=== PATIENT | female | born 1935 | race Caucasian/White ===

== ENCOUNTER 2021-01-14 08:39 | Observation (INO) | payer MEDICARE ==
[~2021-01-14] VITALS: Ht 163.8 cm; Wt 70.4 kg
[2021-01-14] VITALS (8 sets, daily range): BP systolic 93–201; BP diastolic 46–86
[2021-01-14] MEDS ORDERED: ceFAZolin SODIUM IV Push 1 GM VIAL. IVP ONE ×3 (08:45→16:00)
[2021-01-14] MEDS ORDERED: VITA0.4T17 PO (08:59)
[2021-01-14] MEDS ORDERED: ESTR50GE TP (08:59)
[2021-01-14] MEDS ORDERED: HYDR-2867 PO (08:59)
[2021-01-14] MEDS ORDERED: ASCO100019 PO (08:59)
[2021-01-14] MEDS ORDERED: CALC-473 PO (08:59)
[2021-01-14] MEDS ORDERED: vitamin d3 PO (08:59)
[2021-01-14] MEDS ORDERED: LORA10TA3 PO (08:59)
[2021-01-14] MEDS ORDERED: OMEG1CAP38 PO (08:59)
[2021-01-14] MEDS ORDERED: WHEA1POW8 PO (08:59)
[2021-01-14] MEDS ORDERED: MELO7.5T29 PO (08:59)
[2021-01-14] MEDS ORDERED: SIMV20TA18 PO (08:59)
[2021-01-14] MEDS ORDERED: LOSA100T14 PO (08:59)
[2021-01-14] MEDS ORDERED: CARV6.2511 PO (08:59)
[2021-01-14] MEDS ORDERED: MAGN125C PO (08:59)
[2021-01-14] MEDS ORDERED: [UNRECOGNIZED DRUG - OTHER] PO (08:59)
[2021-01-14] MEDS ORDERED: AMLO-187 PO (08:59)
[2021-01-14] MEDS ORDERED: ceFAZolin SODIUM 1 GM in IV NORMAL SALINE 100ML 100 ML IRR ONE (09:00)
--- NOTE | 2021-01-14 09:00 | EKG ---
[facility] [address] [place] [address] Test Date: 2021-01-14 Test Time: 08:56:53 Pat Name: SAHIL WOODRUFF Department: Room: Gender: F Stockbroking Dealer: : [id number] Requested By: ABHILASH BALLESTEROS Order Number: [id number] Reading MD: Abhilash Ballesteros Measurements Intervals [place] Rate: 49 P: 45 DE: 190 QRS: -16 QRSD: 84 T: 16 QT: 452 QTc: 411 Interpretive Statements SINUS BRADYCARDIA LEFTWARD AXIS INCOMPLETE RIGHT BUNDLE BRANCH BLOCK Electronically Signed On 01-16-2021 12:51:50 ENERGY SALES CONSULTANT by Abhilash Ballesteros
[2021-01-14 09:23] LABS: HEMATOCRIT 38.2 % (36.0-47.0); RED BLOOD COUNT 4.01 x10^6/uL (3.50-5.40); RED CELL DISTRIBUTION WIDTH 12.8 % (11.5-14.5)
[2021-01-14 09:30] LABS: CALCIUM 8.9 mg/dL (8.5-10.1); CREATININE 0.6 mg/dL (0.6-1.0); GFR 95.2; POTASSIUM 4.4 mmol/L (3.5-5.1)
[2021-01-14 09:38] LABS: PROTHROMBIN TIME PATIENT 12.7 SEC (11.7-14.0)
[2021-01-14] MEDS ORDERED: fentaNYL PF VIAL 100 MCG/2 ML VIAL ONE (09:44)
[2021-01-14] MEDS ORDERED: MIDAZOLAM HCL/PF 5 MG/5 ML VIAL. ONE (09:44)
[2021-01-14] MEDS ORDERED: LIDOCAINE 2%/EPI 1:100,000 20 ML VIAL. ONE (10:11)
[2021-01-14] MEDS ORDERED: MIDAZOLAM HCL/PF 5 MG/5 ML VIAL. IV ONE (10:15)
[2021-01-14] MEDS ORDERED: LIDOCAINE 2%/EPI 1:100,000 20 ML VIAL. IJ ONE (10:15)
[2021-01-14] MEDS ORDERED: fentaNYL PF VIAL 100 MCG/2 ML VIAL IV ONE (10:15)
[2021-01-14] MEDS ORDERED: hydrALAZINE 20 MG/ML VIAL. ONE (10:44)
[2021-01-14] MEDS ORDERED: hydrALAZINE 20 MG/ML VIAL. IVP ONE (11:00)
--- NOTE | 2021-01-14 11:07 | PDOC ---
MODERATE SEDATION ASSESSMENT RISKS/ALTERNATIVES Risks/Alternatives Risks and alternatives of this type of sedation and procedure discussed with: RISK/ALTERNATIVES: Patient H & P ON CHART H & P H & P on chart and reviewed for co-morbid conditions and appropriate labs. H&P ON CHART: Yes STATUS PREG STATUS ASSESSED: N/A MEDS/ALLERGIES REVIEWED Meds/Allergies Reviewed Medications and Allergies including time and route of recently administered narcotics and sedatives. MEDS/ALLERGIES REVIEWED: Yes ASA RATING ASA RATING: III AIRWAY ASSESSMENT Airway Assessment Airway patency, oral function limitations, presence of caps, crowns, dentures, partials, and ability to extend neck assessed. AIRWAY ASSESSMENT: Yes MALLAMPATI SCORE MALLAMPATI SCORE: II PRE-SEDATION ASSESSMENT PRE-SEDATION ASSESSMENT: Yes ARABELLA GREENE MD Jan 14, 2021 11:07
--- NOTE | 2021-01-14 11:27 | CARD ---
MR#: [id number] Date of Study: 01/14/2021 Ordering Physician: ABHILASH BALLESTEROS, Referring Physician: ABHILASH BALLESTEROS, Tech: APPROVED REPORT PROCEDURES Implantation of Medtronic dual-chamber permanent pacemaker [place] TIME: 3.0 MIN DOSE: 1.9 GYCM2 MODERATE SEDATION: 57 MINS INDICATIONS Sick sinus syndrome with severe symptomatic bradycardia PROCEDURE After explaining the risks, benefits, and alternative options, informed consent was obtained from the patient. The patient was brought to the cardiac catheterization lab and the left chest and shoulder were prepp ed and draped in a sterile manner. IV conscious sedation was used throughout procedure with appropriate monitoring and was performed in the presence of a registered nurse who was an independent trained observer other than the physician p erforming the procedure. During this case, Fluoroscopy and low osmolar contrast were used for imaging. Specimen(s) Removed: No Estimated Blood loss: 15 cc's. 30 cc of 2% lidocaine was infiltrated in the skin and subcutaneous tissues for local anesthesia. An i ncision was made over the left infraclavicular fossa and using blunt dissection and cautery, a pocket was created. Venous access was obtained under fluoroscopy guidance and 9 and 7 Armenian sheaths insert ed. A Medtronic bipolar active fixation right ventricular lead model 102873, serial number [id number] wa s advanced under fluoroscopic guidance and the tip was positioned in the right ventricular apex. Subs equently, a Medtronic bipolar active fixation right atrial lead model 492738, serial number [id number] was positioned in the right atrial appendage under fluoroscopic guidance. The leads were secured i o place and were attached to a Medtronic dual-chamber permanent pacemaker generator model W3 DR 01, serial number [id number]. This was placed in the pocket that was subsequently closed in 3 layers. H emostasis was secured. The right ventricular lead showed a sensing amplitude of 8.2 mV, impedance of 572 ohms and a threshol d of 0.6 V. Right atrial lead showed a sensing amplitude of 2.6 mV, impedance of 441 ohms and a thres hold of 0.4 V. Patient tolerated the procedure well. There were no immediate complications. CONCLUSION Successful implantation of Medtronic dual-chamber permanent pacemaker for sick sinus syndrome with se jassi symptomatic bradycardia. Signed by : Abhilash Ballesteros, Electronically Approved : 01/14/2021 11:27:41
--- NOTE | 2021-01-14 12:05 | NUR ---
Report given to Anna DUNN. Patient had pacemaker placed this a.m., dressing to left chest is clean,dry,intact with pressure dressing. Left arm is in an immobilizer. No complaints of pain. Patient stated her son was leaving after talking to the doctor about how her procedure went. Patient taken to room 648 by cedrick and assisted to her bed without complications, Smooth DUNN assisted patient with telemetry box etc. No problems noted.
--- NOTE | 2021-01-14 12:20 | RAD ---
XR CHEST 1V History: Reason: POST PACEMAKER / Spl. Instructions: / History: Comparison: December 05, 2020 Findings: Left-sided pacemaker with RA and RV leads. No pneumothorax. No pleural effusion. Normal heart size. M ild left midlung linear atelectasis or scarring. Postop changes cervical spine. Glenohumeral DJD. Impression: 1. Interval placement left-sided pacemaker. No pneumothorax. Electronically signed by: Demar Trevino DO (01/14/2021 12:18 PM) [id number]
[2021-01-14] MEDS: CARVEDILOL 6.25 MG TABLET. PO SCH ×2 (17:00→17:02)
[2021-01-14] MEDS ORDERED: NITROGLYCERIN OINT 1 GM PACKET. TP PRN (23:15)
[2021-01-14] MEDS ORDERED: ACETAMINOPHEN 325 MG TABLET. PO PRN (23:15)
[2021-01-14] MEDS ORDERED: LOSARTAN POTASSIUM 50 MG TABLET. PO ONE ×2 (23:30→23:45)
--- NOTE | 2021-01-14 23:45 | NUR ---
Patients blood pressure 189/92 pulse 62. Patient stated she did not take her 200 mg losartan today due to procedure. call center professional for Dr. Lesli urbina. Per Dr. Delarosa give losartan 200mg po now. nitro 1.5 inch every six hours PRN if systolic blood pressure not lowered to 130s. Acetaminophen 650m mg po every 2 hours as needed for pain. Rechecked blood pressure at 0045 and blood pressure 132/57 pulse 59. Patient asleep, easy to wake.
[2021-01-15 00:51] VITALS: BP 132/57
[2021-01-15 02:50] VITALS: BP 123/59
[2021-01-15 07:30] VITALS: BP 151/69
[2021-01-15] MEDS: CARVEDILOL 6.25 MG TABLET. PO SCH (08:21)
[2021-01-15] MEDS ORDERED: LOSARTAN POTASSIUM 50 MG TABLET. PO SCH (09:00)
[2021-01-15 11:03] VITALS: BP 122/64
--- NOTE | 2021-01-15 11:49 | RAD ---
XR CHEST 2V INDICATION: 1 DAY POST PACEMAKER / Spl. Instructions: / History: . COMPARISON STUDY: 01/15/2020. FINDINGS: Life Support Devices: Left pectoral pacemaker. Lungs: Hyperexpanded lung volume. No confluent consolidation. Stable left basilar linear subsegmental atelectasis. Normal pulmonary vasculature. Pleura: Pleural thickening versus trace effusions. Heart and Mediastinum: Stable cardiomediastinal silhouette and great vessels. IMPRESSION: No consolidation. No pneumothorax. Electronically signed by: José Luis Harrison MD (01/15/2021 11:46 AM) [id number]
--- NOTE | 2021-01-15 11:54 | NUR ---
SS following for discharge planning. SS reviewed pt chart and discussed with pt RN. Pt is from home and is currently on room air. Pt had pacemaker placement on 01/14/2021. PT/OT ordered. Cardiology requesting home with home healthcare. Pt agreeable to home healthcare with no preference of company. Referral sent to [facility], ; fax [phone], and pt accepted on services. Cardiology notified. SS will continue to follow for discharge planning. Addendum: 01/15/21 at 1344 by THONG SPEARS SS Discharge [facility] received for [facility] with [facility] healthcare [facility] Pt's RN notified.
--- NOTE | 2021-01-15 12:50 | SNU/HH DC ---
DISCHARGE WITH HOME HEALTH DISCHARGE INFORMATION: Discharge Date: Jan 15, 2021 Final Diagnosis: SSS, HTN, S/P PPM Condition on Discharge: Stable CODE STATUS: Code Status: Full HOME HEALTH: Face to Face: I certify this patient is under my care and that I, or a nurse practitioner or physician's assistant department manager working with me, had a face to face encounter that meets the physician face to face encounter requirements with this patient on []. RN For Eval/Treatment: Yes Physical Therapy For: Evalulation/Treatment Occupational Therapy For: Evaluation/Treatment Home Health Aide For: Self-care Pt Meets Homebound Status: Poor coordination w/ amb. POST DISCHARGE ORDERS: Activity Instructions for Disc: Activity as tolerated, Other, see below (see post pacemaker instructions for mobility restrictions) Weight Bearing Status after Di: No restrictions, Other, see below (Wear sling as instructed) Bathing Instructions: No Tub Bath until see DIET AFTER DISCHARGE: Cardiac Wound/Incision Care: Other, see below Other wound/incision instructi: Keep incision open to air and watch for signs and symptoms of infection FOLLOW-UP: Additional Instructions: See post pacemaker instructions handout CERTIFICATION STATEMENT: Certification Statement: Certification Statement: Based on the above finding, I certify that this patient is confined to the home and needs intermittent halfway care, physical therapy and/or speech therapy, or continues to need occupational therapy.~ This patient is under my care, and I have initiated the establishment of the plan of care.~ This patient will be followed by myself or a community physician who will periodically review the plan of care. Home Meds Reported Medications Wheat Dextrin (Benefiber) 1 Each Powd.pack, 1 EACH PO BID for , PKT 01/14/21 [place]-3 Fatty Acids/Fish Oil (OMEGA 3 FISH OIL SOFTGEL) 1 Each Capsule., 1 EACH PO DAILY for , CAP 01/14/21 [tammie-lulu] No Conflict Check, 1 CAP PO DAILY for 01/14/21 Estradiol (ESTROGEL) 50 Gm Gel..rental salesperson, 1 MARIA ANTONIA TP WEEKLY for for 30 Days, #50 GM 0 Refills 01/14/21 Loratadine (LORATADINE) 10 Mg Tablet, 10 MG PO DAILY for , TAB 01/14/21 Vitamin B Complex/Folic Acid (Super B Maxi Complex Caplet) 0.4 Mg Tablet, 0.4 MG PO DAILY for , TAB 01/14/21 Ascorbic Acid (VITAMIN C) 1,000 Mg Tablet, 1000 MG PO DAILY for , TAB 01/14/21 [vitamin d3] No Conflict Check, 2000 UNITS PO DAILY for 01/14/21 Magnesium Citrate (Magnesium Citrate) 125 Mg Capsule, 250 MG PO DAILY for , CAP 01/14/21 Calcium Cit/Mag/D3/Zn/Gas Compressor Turbine Operator/Carlos (Calcium Citrate Plus Tablet) 1 Each Tablet, 1 EACH PO DAILY for , TAB 01/14/21 Meloxicam (MELOXICAM) 7.5 Mg Tablet, 7.5 MG PO DAILY for , TAB 01/14/21 Simvastatin (SIMVASTATIN) 20 Mg Tablet, 20 MG PO HS for FOR CHOLESTEROL, #30 TAB 0 Refills 01/14/21 Amlodipine Besylate (AMLODIPINE BESYLATE) 10 Mg Tablet, 10 MG PO HS for , TAB 01/14/21 Hydralazine Hcl (HYDRALAZINE HCL) 10 Mg Tablet, 1 TAB PO TID for , #270 TAB 3 Refills 01/14/21 Carvedilol (CARVEDILOL ) 6.25 Mg Tablet, 6.25 MG PO BIDWMEALS for CARDIAC, TAB 01/14/21 Losartan Potassium (LOSARTAN POTASSIUM) 100 Mg Tablet, 100 MG PO DAILY for HYPERTENSION, TAB 01/14/21 SAMUEL GARCIA APRN Jan 15, 2021 12:50
--- NOTE | 2021-01-15 12:55 | PDOC3 ---
SAMUEL GARCIA REGIONAL OPERATIONS DIRECTOR 01/15/21 1254: Discharge Summary Visit Information Date of Admission: Jan 14, 2021 Date of Discharge: Jan 15, 2021 Admitting Diagnosis: SSS, HTN Admitting Diagnosis Comment: SSS, HTN, S/P PPM Brief Hospital Course Allergies Allergies Coded Allergies Type Severity Reaction Last Updated Verified codeine Allergy Severe 01/14/21 Yes tramadol Allergy Intermediate 01/14/21 Yes Vital Signs Vital Signs Date Time Temp Pulse Resp B/P (MAP) Pulse Ox O2 Delivery O2 Flow Rate FiO2 01/15/21 11:03 97.8 60 20 122/64 (83) 98 Room Air 97.8 01/14/21 11:08 2.0 Lab Results Laboratory Tests Test 01/14/21 09:12 White Blood Count 5.0 x10^3/uL (4.0-11.0) Red Blood Count 4.01 x10^6/uL (3.50-5.40) Hemoglobin 13.0 g/dL (12.0-15.5) Hematocrit 38.2 % (36.0-47.0) Mean Corpuscular Volume 95 fL (79-100) Mean Corpuscular Hemoglobin 32 pg (25-35) Mean Corpuscular Hemoglobin Concent 34 g/dL (31-37) Red Cell Distribution Width 12.8 % (11.5-14.5) Platelet Count 184 x10^3/uL (140-400) Prothrombin Time 12.7 SEC (11.7-14.0) Prothromb Time International Ratio 1.0 (0.8-1.1) Sodium Level 138 mmol/L (136-145) Potassium Level 4.4 mmol/L (3.5-5.1) Chloride Level 102 mmol/L (98-107) Carbon Dioxide Level 27 mmol/L (21-32) Anion Gap 9 (6-14) Blood Urea Nitrogen 13 mg/dL (7-20) Creatinine 0.6 mg/dL (0.6-1.0) Estimated GFR (Cockcroft-Gault) 95.2 Glucose Level 88 mg/dL (70-99) Calcium Level 8.9 mg/dL (8.5-10.1) Brief Hospital Course Ms. Alvarez is a 85 old female admitted for planned PPM placement. She had a successful implantation of Medtronic dual-chamber permanent pacemaker for sick sinus syndrome with severe symptomatic bradycardia. Post operatively she did well without any immediate complications. She denies any discomfort and no SOA or chest pain. She tolerated the procedure well. She is AOx3, LSCTA, and neurovascular status to LUE intact and left chest incision is D/I with steristrips without any erythema or swelling. Sling is in place and post PPM care instructions given. She is to continue her home meds and will be seen in our office in 2 weeks. VSS with intermittent pacing. She will be receiving home health therapy. Discharge Information Condition at Discharge: Stable Follow Up: Weeks (2) Disposition/Orders: D/C to Home w/ HH Scheduled Amlodipine Besylate (Amlodipine Besylate) 10 Mg Tablet, 10 MG PO HS for , (Reported) Entered as Reported by: JANE DONOVAN on 01/14/21858 Last Action: Continued on 01/14/211101 by VICKY MONAE Ascorbic Acid (Vitamin C) 1,000 Mg Tablet, 1,000 MG PO DAILY for , (Reported) Entered as Reported by: JANE DONOVAN on 01/14/21858 Last Action: New Order on 01/14/21858 by JANE DONOVAN Calcium Cit/Mag/D3/Zn/Hearing Aid Dispenser/Carlos (Calcium Citrate Plus Tablet) 1 Each Tablet, 1 EACH PO DAILY for , (Reported) Entered as Reported by: JANE DONOVAN on 01/14/21858 Last Action: New Order on 01/14/21858 by JANE DONOVAN Carvedilol (Carvedilol ) 6.25 Mg Tablet, 6.25 MG PO BIDWMEALS for CARDIAC, (Reported) Entered as Reported by: JANE DONOVAN on 01/14/21858 Last Action: Continued on 01/14/211101 by VICKY MONAE Estradiol (Estrogel) 50 Gm Gel..flame annealing machine setter, 1 MARIA ANTONIA TP WEEKLY for for 30 Days, #50 Ref 0 (Reported) Entered as Reported by: JANE DONOVAN on 01/14/21858 Last Action: New Order on 01/14/21858 by JANE DONOVAN Hydralazine Hcl (Hydralazine Hcl) 10 Mg Tablet, 1 TAB PO TID for , #270 Ref 3 (Reported) Entered as Reported by: JANE DONOVAN on 01/14/21858 Last Taken: Unknown Dose on 01/14/21 Last Action: New Order on 01/14/21858 by JANE DONOVAN Loratadine (Loratadine) 10 Mg Tablet, 10 MG PO DAILY for , (Reported) Entered as Reported by: JANE DONOVAN on 01/14/21858 Last Action: New Order on 01/14/21858 by JANE DONOVAN Losartan Potassium (Losartan Potassium) 100 Mg Tablet, 100 MG PO DAILY for HYPERTENSION, (Reported) Entered as Reported by: JANE DONOVAN on 01/14/21858 Last Action: Converted on 01/14/211101 by VICKY MONAE Magnesium Citrate (Magnesium Citrate) 125 Mg Capsule, 250 MG PO DAILY for , (Reported) Entered as Reported by: JANE DONOVAN on 01/14/21858 Last Action: New Order on 01/14/21858 by JANE DONOVAN Meloxicam (Meloxicam) 7.5 Mg Tablet, 7.5 MG PO DAILY for , (Reported) Entered as Reported by: JANE DONOVAN on 01/14/21858 Last Action: New Order on 01/14/21858 by JANE DONOVAN [place]-3 Fatty Acids/Fish Oil ([place] 3 Fish Oil Softgel) 1 Each Capsule.dr, 1 EACH PO DAILY for , (Reported) Entered as Reported by: JANE DONOVAN on 01/14/21858 Last Action: New Order on 01/14/21858 by JANE DONOVAN Simvastatin (Simvastatin) 20 Mg Tablet, 20 MG PO HS for FOR CHOLESTEROL, #30 Ref 0 (Reported) Entered as Reported by: JANE DONOVAN on 01/14/21858 Last Action: New Order on 01/14/21858 by JANE DONOVAN Vitamin B Complex/Folic Acid (Super B Maxi Complex Caplet) 0.4 Mg Tablet, 0.4 MG PO DAILY for , (Reported) Entered as Reported by: JANE DONOVAN on 01/14/21858 Last Taken: Unknown Dose on 01/14/21 Last Action: New Order on 01/14/21858 by JANE DONOVAN Wheat Dextrin (Benefiber) 1 Each Powd.pack, 1 EACH PO BID for , (Reported) Entered as Reported by: JANE DONOVAN on 01/14/21858 Last Action: New Order on 01/14/21858 by JANE DONOVAN [tammie-lulu] , 1 CAP PO DAILY for , (Reported) Entered as Reported by: JANE DONOVAN on 01/14/21858 Last Action: New Order on 01/14/21858 by JANE DONOVAN [vitamin d3] , 2,000 UNITS PO DAILY for , (Reported) Entered as Reported by: JANE DONOVAN on 01/14/21858 Last Action: New Order on 01/14/21858 by JANE DONOVAN Patient Instructions Patient Instructions Must know & what to expect after device implant: 1. Your surgical dressing should be removed prior to discharge from the [facility], but allow the steri- strips to fall off naturally. 2. Activity restrictions: DO NOT raise arm above shoulder level, lift anything heavier than a gallon of milk, and no push or pull motions such as vacuuming/lawn mowing, no swinging motions (golf), etc for 4 weeks. 3. It is OK to use a cell phone or other electronic devices just be sure you do not store it in a breast pocket on the side where the device was placed. 4. Device will be interrogated prior to your discharge from the hospital and then every 3 months for defibrillators and every 6 months for pacemakers. You may be asked to have your device checked remotely from home as well, but this will depend on your particular physicians preference. 5. You may remove the arm immobilizer the day after device placement. Wear the arm immobilizer/splint at night (during sleep times) for 2 week to prevent unintended arm movement that can cause lead dislodgement. 6. Do not drive for one week as the task of driving may lead to unintended arm motion that may cause lead dislodgement. The seatbelt will also rub against the incision site & cause irritation. 7. It is our recommendation that you utilize Tylenol at home for pain control. You need to call our office if you are having uncontrollable pain at the incision site. 8. Keep your incision clean and dry. It is OK to shower. DO NOT submerge in bath, pool, or hot tub, until cleared by your doctor, as this could lead to increase risk of infection.. It is OK to use regular soap just do not scrub the incision site. Water spray from shower should not directly hit the incision. Be sure to blot dry not rub. 9. Inspect your incision daily. If you notice any increased redness, swelling, or drainage, or if you start running a fever, call the office immediately. The number is [phone]. 10. For women, if you need to protect against irritation from the bra straps, you can place a piece of gauze over the incision site for cushion. Please be sure to tape it loosely to allow air to the site & remove the gauze when you remove the bra. 11. Be sure to carry your device identification information card in your wallet/purse at all times. 12. It is OK to go through security at the airport with your device, but be sure to let the TSA know prior to proceeding as the security settings change depending on varying factors. Please do whatever is requested by security at that time. 13. Some of the newer devices may be MRI compatible but, currently, the use of these devices is not widespread, so you likely will not be able to have an MRI. Please clarify this with your physician. If at any time, you feel lightheaded or dizzy/faint, stop what you are doing & lie down immediately. If you are driving, get to the side of the road quickly, turn your car off & call 911 on your cell phone. DO NOT continue to drive as this may cause an accident that seriously injures yourself &/or others. Call the office at [phone] for any questions or concerns. Justicifation of Admission Dx: Justifications for Admission: Justification of Admission Dx: Yes ARABELLA GREENE MD 01/15/21 1750: Discharge Summary Brief Hospital Course Brief Hospital Course Patient seen and examined. Agree with WILDLIFE CONSERVATION PROFESSOR's assessment and plan. Patient underwent successful dual-chamber permanent pacemaker implantation yesterday for sick sinus syndrome with severe symptomatic bradycardia. Her incision looked good and chest x-ray did not show any pneumothorax. Device interrogation showed normal function. Follow-up with our office as scheduled. Discharge Information Scheduled Amlodipine Besylate (Amlodipine Besylate) 10 Mg Tablet, 10 MG PO HS for , (Reported) Entered as Reported by: JANE DONOVAN on 01/14/21858 Last Action: Continued on 01/14/211101 by VICKY MONAE Ascorbic Acid (Vitamin C) 1,000 Mg Tablet, 1,000 MG PO DAILY for , (Reported) Entered as Reported by: JANE DONOVAN on 01/14/21858 Last Action: New Order on 01/14/21858 by JANE DONOVAN Calcium Cit/Mag/D3/Zn/Hearing Aid Dispenser/Carlos (Calcium Citrate Plus Tablet) 1 Each Tablet, 1 EACH PO DAILY for , (Reported) Entered as Reported by: JANE DONOVAN on 01/14/21858 Last Action: New Order on 01/14/21858 by JANE DONOVAN Carvedilol (Carvedilol ) 6.25 Mg Tablet, 6.25 MG PO BIDWMEALS for CARDIAC, (Reported) Entered as Reported by: JANE DONOVAN on 01/14/21858 Last Action: Continued on 01/14/211101 by VICKY MONAE Estradiol (Estrogel) 50 Gm Gel.flame annealing machine setter, 1 MARIA ANTONIA TP WEEKLY for for 30 Days, #50 Ref 0 (Reported) Entered as Reported by: JANE DONOVAN on 01/14/21858 Last Action: New Order on 01/14/21858 by JANE DONOVAN Hydralazine Hcl (Hydralazine Hcl) 10 Mg Tablet, 1 TAB PO TID for , #270 Ref 3 (Reported) Entered as Reported by: JANE DONOVAN on 01/14/21858 Last Taken: Unknown Dose on 01/14/21 Last Action: New Order on 01/14/21858 by JANE DONOVAN Loratadine (Loratadine) 10 Mg Tablet, 10 MG PO DAILY for , (Reported) Entered as Reported by: JANE DONOVAN on 01/14/21858 Last Action: New Order on 01/14/21858 by JANE DONOVAN Losartan Potassium (Losartan Potassium) 100 Mg Tablet, 100 MG PO DAILY for HYPERTENSION, (Reported) Entered as Reported by: JANE DONOVAN on 01/14/21858 Last Action: Converted on 01/14/211101 by VICKY MONAE Magnesium Citrate (Magnesium Citrate) 125 Mg Capsule, 250 MG PO DAILY for , (Reported) Entered as Reported by: JANE DONOVAN on 01/14/21858 Last Action: New Order on 01/14/21858 by JANE ODNOVAN Meloxicam (Meloxicam) 7.5 Mg Tablet, 7.5 MG PO DAILY for , (Reported) Entered as Reported by: JANE DONOVAN on 01/14/21858 Last Action: New Order on 01/14/21858 by JANE DONOVAN Afton-3 Fatty Acids/Fish Oil ([place] 3 Fish Oil Softgel) 1 Each Capsule.dr, 1 EACH PO DAILY for , (Reported) Entered as Reported by: JANE DONOVAN on 01/14/21858 Last Action: New Order on 01/14/21858 by JANE DONOVAN Simvastatin (Simvastatin) 20 Mg Tablet, 20 MG PO HS for FOR CHOLESTEROL, #30 Ref 0 (Reported) Entered as Reported by: JANE DONOVAN on 01/14/21858 Last Action: New Order on 01/14/21858 by JANE DONOVAN Vitamin B Complex/Folic Acid (Super B Maxi Complex Caplet) 0.4 Mg Tablet, 0.4 MG PO DAILY for , (Reported) Entered as Reported by: JANE DONOVAN on 01/14/21858 Last Taken: Unknown Dose on 01/14/21 Last Action: New Order on 01/14/21858 by JANE DONOVAN Wheat Dextrin (Benefiber) 1 Each Powd.pack, 1 EACH PO BID for , (Reported) Entered as Reported by: JANE DONOVAN on 01/14/21858 Last Action: New Order on 01/14/21858 by JANE DONOVAN [tammie-lulu] , 1 CAP PO DAILY for , (Reported) Entered as Reported by: JANE DONOVAN on 01/14/21858 Last Action: New Order on 01/14/21858 by JANE DONOVAN [vitamin d3] , 2,000 UNITS PO DAILY for , (Reported) Entered as Reported by: JANE DONOVAN on 01/14/21858 Last Action: New Order on 01/14/21858 by SAMUEL ROE APRN Jan 15, 2021 12:54 ARABELLA GREENE MD Jan 15, 2021 17:50
--- NOTE | 2021-01-15 15:00 | NUR ---
PIV'S DISCONTINUED, ET TELE REMOVED. PT ASSISTED TO DRESS WITH (L) ARM IMMOBILIZER. DISCHARGE INSTRUCTIONS, MEDICATIONS, AND PACEMAKER SPECIFIC INFORMATION REVIEWED WITH PATIENT TO HER SATISFACTION. PT TO DC IN WHEELCHAIR SOON SON ARRIVES.
== END 2021-01-15 15:05 | disposition home health service (06) ==
LOC: CCL 08:39 → 6 SOUTH 09:33 → INTOOBSV 09:33
PROVIDERS: ADMIT Internal Medicine Cardiovascular Disease; ATTEND Internal Medicine Cardiovascular Disease
DX: I49.5 Sick sinus syndrome (principal); I10 Essential (primary) hypertension; Z45.018 Encounter for adjustment and management of other part of cardiac pacemaker; Z79.899 Other long term (current) drug therapy
CPT/HCPCS: 33208; 36415; 71045; 71046; 80048; 85027; 85610; 93005; 96374; 99152; 99153; C1785; G0378; G0379; J0360; J0690; J2250; J3010; J3490